=== PATIENT | male | born 1980 | race Caucasian/White ===

== ENCOUNTER 2024-12-11 08:56 | Emergency (ER) | payer OTHER ==
[~2024-12-11] VITALS: Ht 185.4 cm; Wt 75.7 kg
[2024-12-11 09:02] VITALS: TEMP 98.3
[2024-12-11] MEDS ORDERED: LORAZEPAM 1 MG TABLET ONE (10:09)
[2024-12-11] MEDS: LORAZEPAM 1 MG TABLET PO ONE (10:11)
[2024-12-11 10:16] VITALS: BP 132/89; O2SAT 99
== END 2024-12-11 10:17 | disposition home or self-care (01) ==
LOC: ER 09:01
DX: F15.10 Other stimulant abuse, uncomplicated (principal); F11.23 Opioid dependence with withdrawal; G89.29 Other chronic pain; Z59.00 Homelessness unspecified

== ENCOUNTER 2025-01-09 02:30 | Emergency (ER) | payer OTHER ==
[~2025-01-09] VITALS: Ht 185.4 cm; Wt 77.1 kg
[2025-01-09 02:51] VITALS: TEMP 98.5
[2025-01-09 03:51] LABS: EOSINOPHILS # (AUTO) 0.1 K/uL (0.0-0.7); EOSINOPHILS % (AUTO) 1.4 % (0.0-6.0); HEMATOCRIT 31 % (39-51); HEMOGLOBIN 10.6 g/dL (13.5-17.5); LYMPHOCYTES # (AUTO) 1.5 K/uL (0.8-4.8); LYMPHOCYTES % (AUTO) 36.2 % (20.0-44.0); MEAN CORPUSCULAR HEMOGLOBIN 30 PG (26.0-33.0); MEAN CORPUSCULAR HGB CONC 35 g/dl (31.0-36.0); MEAN CORPUSCULAR VOLUME 86 fL (80-96); MONOCYTES # (AUTO) 0.4 K/uL (0.1-1.30); MONOCYTES % (AUTO) 9.4 % (2.0-12.0); NEUTROPHILS # (AUTO) 2.2 K/uL (1.8-8.9); PLATELET COUNT (AUTO) 244 K/uL (150-450); RED BLOOD CELL COUNT(AUTO) 3.59 MIL/uL (4.5-6.0); RED CELL DISTRIBUTION WIDTH 13.6 % (11.5-15.0); WHITE BLOOD COUNT (AUTO) 4.2 K/uL (4.3-11.0)
[2025-01-09 04:01] LABS: CALCIUM, SERUM 8.9 mg/dL (8.5-10.1); CREATININE 0.8 mg/dL (0.6-1.3)
[2025-01-09 04:02] LABS: C-REACTIVE PROTEIN 0.75 mg/dL (0.0-0.30)
[2025-01-09] MEDS ORDERED: HYDR25TA4 PO (04:33)
[2025-01-09 04:39] LABS: ERYTHROCYTE SEDIMENTATION RATE 13 MM/HR (0-15)
[2025-01-09 05:00] VITALS: BP 137/78; O2SAT 97
== END 2025-01-09 05:00 | disposition home or self-care (01) ==
LOC: ER 02:33
DX: I87.2 Venous insufficiency (chronic) (peripheral) (principal); R60.9 Edema, unspecified; Z60.2 Problems related to living alone
CPT/HCPCS: 36415; 73590-TC; 80048-TC; 83880; 85025-TC; 85652-TC; 86140-TC; 93971-TC

== ENCOUNTER 2025-07-20 17:56 | Inpatient (IN) | payer OTHER ==
[~2025-07-20] VITALS: Ht 185.4 cm; Wt 81.2 kg
[~2025-07-20 17:56] MED LIST: HYDR25TA4 PO
[2025-07-20 18:52] LABS: ASPARTATE AMINOTRANSFERASE 3 U/L (15-37); CALCIUM, SERUM 8.8 mg/dL (8.5-10.1); SODIUM SERUM 136 mmol/L (136-145); TOTAL PROTEIN, SERUM 7.9 g/dL (6.4-8.2); UREA NITROGEN, BLOOD 11 mg/dL (7-18)
[2025-07-20 19:00] LABS: PLATELET COUNT (AUTO) 362 K/uL (150-450); RED BLOOD CELL COUNT(AUTO) 4.30 MIL/uL (4.5-6.0); RED CELL DISTRIBUTION WIDTH 13.8 % (11.5-15.0); WHITE BLOOD COUNT (AUTO) 5.6 K/uL (4.3-11.0)
[2025-07-20] MEDS ORDERED: LORAZEPAM INJ 2 MG/ML VIAL ONE (19:13)
[2025-07-20] MEDS: LORAZEPAM INJ 2 MG/ML VIAL IV ONE (19:22)
[2025-07-20 19:25] LABS: CREATININE 0.8 mg/dL (0.6-1.3)
[2025-07-20] MEDS ORDERED: LIDOCAINE 1%-EPI 1:100,000 20 ML VIAL ONE (19:35)
[2025-07-20] MEDS: LIDOCAINE 1%-EPI 1:100,000 20 ML VIAL TP ONE (20:28)
[2025-07-20] MEDS ORDERED: METHADONE HCL 10 MG TABLET ONE (21:06)
[2025-07-20] MEDS ORDERED: CEPHALEXIN MONOHYDRATE 500 MG CAPSULE PO ONE (21:07)
[2025-07-20] MEDS: METHADONE HCL 10 MG TABLET PO SCH (21:13)
[2025-07-20] MEDS: CEPHALEXIN MONOHYDRATE 500 MG CAPSULE PO ONE (21:13)
[2025-07-20] MEDS: TDAP [DIPH/PERTUSSIS/TET] 0.5 ML VIAL IM ONE (21:13)
[2025-07-20] MEDS ORDERED: ACETAMINOPHEN 325 MG TABLET PO PRN (21:30)
[2025-07-20] MEDS ORDERED: MAG HYDROX/AL HYDROX/SIMETH 30 ML UDC PO PRN (21:30)
[2025-07-20] MEDS ORDERED: DOSING PER PHARMACY-VANCOMYCIN IV XX PRN (21:30)
[2025-07-20] MEDS ORDERED: MAGNESIUM HYDROXIDE 30 ML UDC PO PRN (21:30)
[2025-07-20] MEDS ORDERED: ONDANSETRON HCL/PF 4 MG/2 ML VIAL IVP PRN (21:30)
[2025-07-20] MEDS ORDERED: Z GUARD REMEDY 4 OZ OINT TP PRN (21:30)
[2025-07-20] MEDS ORDERED: ALPRAZOLAM 0.5 MG TABLET ONE (21:39)
[2025-07-20] MEDS: ALPRAZOLAM 0.5 MG TABLET PO PRN (21:39)
[2025-07-20] MEDS ORDERED: ALPRAZOLAM 0.5 MG TABLET PO PRN (22:00)
[2025-07-20] MEDS: OLANZAPINE 10 MG VIAL IM ONE (22:27)
[2025-07-20] MEDS ORDERED: VANCOMYCIN 1 GM /D5W 250 ML PB IV ONE (22:37)
[2025-07-20] MEDS: VANCOMYCIN 1 GM in IV D5W 250ml IV ONE (22:46)
[2025-07-21 05:45] LABS: CALCIUM, SERUM 8.7 mg/dL (8.5-10.1); CREATININE 0.8 mg/dL (0.6-1.3); PHOSPHORUS 4.4 mg/dL (2.5-4.9); SODIUM SERUM 142.0 mmol/L (136-145); UREA NITROGEN, BLOOD 10.0 mg/dL (7-18)
[2025-07-21 05:50] LABS: PLATELET COUNT (AUTO) 290 K/uL (150-450); RED BLOOD CELL COUNT(AUTO) 4.07 MIL/uL (4.5-6.0); RED CELL DISTRIBUTION WIDTH 13.9 % (11.5-15.0); WHITE BLOOD COUNT (AUTO) 5.6 K/uL (4.3-11.0)
[2025-07-21 07:06] LABS: BARBITURATE, URINE NEGATIVE (NEGATIVE); BENZODIAZEPINE, URINE NEGATIVE (NEGATIVE); CANNABINOID, URINE NEGATIVE (NEGATIVE); OPIATE, URINE NEGATIVE (NEGATIVE)
[2025-07-21 07:07] LABS: AMPHETAMINE, URINE POSITIVE (NEGATIVE); COCCAINE, URINE POSITIVE (NEGATIVE)
[2025-07-21 08:30] VITALS: BP 115/60; TEMP 97.3
[2025-07-21] MEDS: VANCOMYCIN 1 GM in IV D5W 250 ML IV SCH (11:12)
[2025-07-21] MEDS: PANTOPRAZOLE 40 MG TABLET.DR PO SCH (11:23)
[2025-07-21] MEDS: METHADONE HCL 10 MG TABLET PO SCH (11:25)
[2025-07-21] MEDS ORDERED: METHADONE PO (14:52)
[2025-07-21] MEDS ORDERED: GABA-532 PO (14:52)
[2025-07-21 20:00] VITALS: BP 101/56; TEMP 97.5; O2SAT 98
[2025-07-22 07:00] VITALS: BP_SYST 100; BP_SYST 138; BP_DIAS 102; BP_DIAS 62; TEMP 97.7; TEMP 99.1; O2SAT 100; O2SAT 97
[2025-07-22 07:37] LABS: CALCIUM, SERUM 8.9 mg/dL (8.5-10.1); CREATININE 1.9 mg/dL (0.6-1.3); SODIUM SERUM 140.0 mmol/L (136-145); UREA NITROGEN, BLOOD 18.0 mg/dL (7-18)
[2025-07-22 16:00] VITALS: BP 105/60; TEMP 98.2; O2SAT 97
[2025-07-22] MEDS: ALPRAZOLAM 1 MG TABLET PO PRN (17:24)
[2025-07-22] MEDS: VANCOMYCIN 1 GM in IV D5W 250 ML IV SCH (18:18)
[2025-07-22 20:00] VITALS: BP 119/65; TEMP 97.9; O2SAT 98
[2025-07-22 23:37] LABS: APPEARANCE,URINE CLOUDY (CLEAR); BLOOD, URINE NEGATIVE Ery/uL (NEGATIVE); LEUKOCYTE ESTERASE ,URINE NEGATIVE (NEGATIVE); NITRITE, URINE NEGATIVE (NEGATIVE); UGLUCOSE NEGATIVE (NEGATIVE)
[2025-07-22 23:44] LABS: CREATININE, URINE 272.0 MG/DL (30.0-125.0); URINE SODIUM, RANDOM 30.0 mmol/l (40-220); URINE TOTAL PROTEIN 37.0 mg/dL (0-11.9)
[2025-07-22 23:56] LABS: ADD URINE CULTURE YES; SQUAMOUS EPITHELIAL CELL,UR None Seen /HPF (None Seen)
[2025-07-23 00:41] LABS: EOSINOPHIL,URINE None Seen
[2025-07-23 06:48] LABS: PLATELET COUNT (AUTO) 277 K/uL (150-450); RED BLOOD CELL COUNT(AUTO) 4.12 MIL/uL (4.5-6.0); RED CELL DISTRIBUTION WIDTH 13.5 % (11.5-15.0); WHITE BLOOD COUNT (AUTO) 7.2 K/uL (4.3-11.0)
[2025-07-23 07:07] LABS: CREATINE KINASE, TOTAL 197.0 U/L (39-308)
[2025-07-23 07:09] LABS: ASPARTATE AMINOTRANSFERASE 17.0 U/L (15-37); CALCIUM, SERUM 8.8 mg/dL (8.5-10.1); CREATININE 2.3 mg/dL (0.6-1.3); PHOSPHORUS 4.6 mg/dL (2.5-4.9); SODIUM SERUM 138.0 mmol/L (136-145); TOTAL PROTEIN, SERUM 6.4 g/dL (6.4-8.2); UREA NITROGEN, BLOOD 24.0 mg/dL (7-18)
[2025-07-23 07:30] VITALS: BP 131/76; TEMP 98.8; O2SAT 99
[2025-07-23] MEDS: SERTRALINE HCL 25 MG TABLET PO SCH (08:30)
[2025-07-23] MEDS: IV NS 0.9% 1,000 ML IV ONE (08:49)
[2025-07-23] MEDS: IV NS 0.9% 1,000 ML IV PRN (13:21)
[2025-07-23 16:00] VITALS: BP 116/68; TEMP 98.6; O2SAT 96
[2025-07-23 21:45] VITALS: BP 113/61; TEMP 97.9; O2SAT 95
[2025-07-24 06:13] LABS: CALCIUM, SERUM 8.5 mg/dL (8.5-10.1); CREATININE 2.2 mg/dL (0.6-1.3); SODIUM SERUM 140.0 mmol/L (136-145); UREA NITROGEN, BLOOD 22.0 mg/dL (7-18)
[2025-07-24 07:30] VITALS: BP 119/77; TEMP 97.7; O2SAT 99
[2025-07-24 09:12] LABS: PTH, INTACT 13 pg/mL (15-65)
[2025-07-24] MEDS: VANCOMYCIN HCL 1.25 GM in IV D5W 250 ML IV SCH (09:21)
[2025-07-24 16:00] VITALS: BP 136/82; TEMP 97.5; O2SAT 99
[2025-07-24] MEDS: CLINDAMYCIN HCL 150 MG CAPSULE PO SCH (19:23)
[2025-07-24 20:00] VITALS: BP 147/82; TEMP 98.1; O2SAT 98
[2025-07-24 20:53] VITALS: BP 147/82; TEMP 98.1; O2SAT 97
[2025-07-25 08:00] VITALS: BP 146/85; TEMP 98.2; O2SAT 99
[2025-07-25 08:01] LABS: CALCIUM, SERUM 8.7 mg/dL (8.5-10.1); CREATININE 2.4 mg/dL (0.6-1.3); SODIUM SERUM 141.0 mmol/L (136-145); UREA NITROGEN, BLOOD 22.0 mg/dL (7-18)
[2025-07-25] MEDS: SODIUM ZIRCONIUM CYCLOSILICATE 10 GM POWD.PACK PO ONE ×2 (10:56→20:22)
[2025-07-25] MEDS ORDERED: GADOTERATE MEGLUMINE 10 MMOL/20 ML VIAL IV ONE (13:15)
[2025-07-25 15:23] LABS: CALCIUM, SERUM 8.4 mg/dL (8.5-10.1); CREATININE 2.2 mg/dL (0.6-1.3); SODIUM SERUM 140.0 mmol/L (136-145); UREA NITROGEN, BLOOD 24.0 mg/dL (7-18)
[2025-07-25 16:00] VITALS: BP 134/71; TEMP 97.3; O2SAT 100
[2025-07-25 20:00] VITALS: BP 125/67; TEMP 210.7; TEMP 99.3; O2SAT 98
[2025-07-26 07:51] LABS: PLATELET COUNT (AUTO) 259 K/uL (150-450); RED BLOOD CELL COUNT(AUTO) 3.30 MIL/uL (4.5-6.0); RED CELL DISTRIBUTION WIDTH 13.2 % (11.5-15.0); WHITE BLOOD COUNT (AUTO) 8.4 K/uL (4.3-11.0)
[2025-07-26 07:52] LABS: ERYTHROCYTE SEDIMENTATION RATE 62 MM/HR (0-15)
[2025-07-26 08:00] VITALS: BP 146/88; TEMP 97.9; O2SAT 98
[2025-07-26 08:10] LABS: ASPARTATE AMINOTRANSFERASE 26.0 U/L (15-37); CREATININE 2.0 mg/dL (0.6-1.3); PHOSPHORUS 4.0 mg/dL (2.5-4.9); SODIUM SERUM 140.0 mmol/L (136-145); TOTAL PROTEIN, SERUM 6.4 g/dL (6.4-8.2); UREA NITROGEN, BLOOD 21.0 mg/dL (7-18)
[2025-07-26 09:21] LABS: CALCIUM, SERUM 8.6 mg/dL (8.5-10.1)
[2025-07-26] MEDS ORDERED: CLIN300C12 PO (10:44)
[2025-07-27 08:07] LABS: COMPLEMENT C3, SERUM 170 mg/dL (82-167); COMPLEMENT C4, SERUM 29 mg/dL (12-38)
[2025-07-27 13:12] LABS: *ANA ANTI-CENTROMERE B AB <0.2 AI (0.0-0.9); *ANA ANTI-DNA(DS) AB, QN <1 IU/mL (0-9); *ANA ANTI-JO-1 <0.2 AI (0.0-0.9); *ANA ANTICHROMATIN ANTIBODY <0.2 AI (0.0-0.9); *ANA RNP ANTIBODIES 0.5 AI (0.0-0.9); *ANA SJOGREN'S ANTI-SS-A <0.2 AI (0.0-0.9); *ANA SJOGREN'S ANTI-SS-B <0.2 AI (0.0-0.9); *ANAANTI-SCLERODERMA-70 AB <0.2 AI (0.0-0.9); *ANASMITH AB <0.2 AI (0.0-0.9)
== END 2025-07-26 11:45 | disposition home or self-care (01) | DRG 603 ==
LOC: ER 18:03 → MS IN 07-21 06:00 → MED 07-21 07:48
PROVIDERS: ADMIT Nurse Practitioner Acute Care; ATTEND Nurse Practitioner Family
PROC: 0HQEXZZ Repair Left Lower Arm Skin, External Approach (ICD-10-PCS; principal; 2025-07-21)
DX: L03.114 Cellulitis of left upper limb (principal); F29 Unspecified psychosis not due to a substance or known physiological condition; N17.9 Acute kidney failure, unspecified; S66.922A Laceration of unspecified muscle, fascia and tendon at wrist and hand level, left hand, initial encounter; D64.9 Anemia, unspecified; E87.5 Hyperkalemia; F32.A Depression, unspecified; N18.9 Chronic kidney disease, unspecified; R45.851 Suicidal ideations; F17.200 Nicotine dependence, unspecified, uncomplicated; X58.XXXA Exposure to other specified factors, initial encounter; Y92.9 Unspecified place or not applicable; Z79.899 Other long term (current) drug therapy; F41.9 Anxiety disorder, unspecified; Z91.51 Personal history of suicidal behavior; T36.8X5A Adverse effect of other systemic antibiotics, initial encounter; F32.9 Major depressive disorder, single episode, unspecified; F39 Unspecified mood [affective] disorder; Z79.891 Long term (current) use of opiate analgesic
CPT/HCPCS: 36415; 73090-TC; 73220-TC; 73223-TC; 76770-TC; 80048-TC; 80053-TC; 80076-TC; 80202-TC; 81001; 82550-TC; 82570-TC; 83735-TC; 83970; 84100-TC; 84155; 84165; 84300-TC; 85025-TC; 85652-TC; 86225; 86235; 86803; 87081-TC; 87086-TC; 87340; 90715; A4223; A6253; A6254; A6403; A9575; G0378; G0480; J2060; J3373; J3490; J7030; J7060